=== PATIENT | male | born 1995 | race Caucasian/White ===

== ENCOUNTER 2019-08-11 16:22 | Emergency (ER) | payer OTHER ==
[~2019-08-11] VITALS: Ht 175.3 cm; Wt 70.7 kg
[2019-08-11 17:54] VITALS: BP 120/76
== END 2019-08-11 17:53 | disposition home or self-care (01) ==
LOC: M ED 16:22
DX: Z03.6 Encounter for observation for suspected toxic effect from ingested substance ruled out (principal)